=== PATIENT | male | born 1980 | race Two or more races ===

== ENCOUNTER 2024-06-25 16:05 | Emergency (ER) | payer MEDICAID, SELFPAY ==
[2024-06-25 16:36] VITALS: BP 148/84; PULSE 101; RESP 18; TEMP 38; O2SAT 98
--- NOTE | 2024-06-25 16:50 | EDNOTE_ITS ---
ED General RME/HPI General Chief complaint: Abdominal Pain Stated complaint: ABDOMINAL PAIN, DIARRHEA X 2D Time Seen by Provider: 06/25/24 16:18 Arrival date/time: 06/25/24 16:05 RME / HPI RME / HPI narrative: 44-year-old male patient came in for evaluation regarding diarrhea. Patient has been having diarrhea since yesterday nonbloody at least 8 times since the onset. Associated with abdominal cramping patient denies any fever denies any vomiting denies any nausea denies any ill contacts. Denies any travel outside the [place]. Related Data Previous Rx's ?Medication ?Instructions ?Recorded omeprazole 20 mg tablet,delayed 20 mg PO QDAY #30 tabs 04/18/23 release dicyclomine 20 mg tablet 20 mg PO BID PRN abdominal p ain 06/25/24 #20 tabs pantoprazole 40 mg tablet,delayed 40 mg PO QDAY #30 ta bs 06/25/24 release (Protonix) Allergies Allergy/AdvReac Type Severity Reaction Status Date / Time No Known Allergies Allergy Verified 06/25/24 16:08 Review of Systems Review of Systems Narrative Review of Systems: Review of system reviewed and within normal limits except mentioned in HPI ED Exam Narrative Physical exam: VITAL SIGNS: Reviewed. GENERAL APPEARANCE: Alert and interactive, follows commands, no acute distress, HEAD AND FACE: Non-traumatic. ENT: PERRL, pink conjunctivitis, eyelid no trauma, Mucous membrane moist. NECK: Supple, nontender, no nuchal rigidity. CHEST: No tenderness, no crepitus, no paradoxical movement, no retractions. LUNGS: Clear, well ventilated, symmetric, no rales, no wheezing, no ronchi, no stridor, good breath sounds bilaterally. HEART: Regular rate, regular rhythm, no murmur, no gallops. ABDOMEN: Soft, positive bowel sounds, nondistended, no guarding, nontender, no rebound, no masses, RECTAL: Deferred. GENITAL: Deferred. NEUROLOGICAL: Gross motor function intact sensory function intact, Appropriate for age. MUSCULOSKELETAL: low back nontender, full range of motion. EXTREMITIES: Nontender, full range of motion. SKIN: Color pink, dry, no rash, no lacerations, no abrasions, no contusions. LYMPHATICS: Deferred. Course Quality Measures none Orders Category Date Time Status Dicyclomine [Bentyl] Med 06/25/24 16:50 Once 20 mg PO X1 ONE Pantoprazole [Protonix] Med 06/25/24 16:50 Once 40 mg PO X1 ONE Vital Signs Vital signs: Vital Signs Temperature 100.4 F 06/25/24 16:36 Pulse Rate 101 H 06/25/24 16:36 Respiratory Rate 18 06/25/24 16:36 Blood Pressure 148/84 H 06/25/24 16:36 Pulse Oximetry (%) 98 06/25/24 16:36 Oxygen Delivery Method Room Air 06/25/24 16:36 MDM Patient data External records reviewed:: None Clinical information provided by:: patient Social determinants that could affect healthcare access:: none Patient has the following chronic illnesses:: None How is presenting disease/condition affected by chronic disease/condition?: no chronic disease Evaluation data The following diagnostics were reviewed and interpreted by me:: other (specify) (None) Lab and/or radiology exams considered but not ordered:: None Interpretation Summary: None Medications Medications considered but not ordered:: None Medication administrations:: None Consultations Consultation(s) initiated? (list below): No Diagnosis Differential Diagnosis ED Complaint MDM: Gastroenteritis, food poisoning, viral diarrhea Most likely diagnosis given after review of the tests above:: Gastroenteritis Admission Indicated Admission indicated?: not indicated Explain why admission is indicated or not indicated:: None Admission Request Was there a request for admission?: No Disposition Plan Disposition Plan: Discharge Discharge Attestation Discharge Attestation: The patient and all family members were given an opportunity to ask questions and understood the discharge instructions. Discharge instructions specifically effects, indications for sooner follow up or return to the emergency department, and the expected course of current diagnosis. Patient condition: Stable Medical Decision Making MDM Narrative MDM Narrative: 44-year-old male patient came in for evaluation regarding diarrhea. Patient has been having diarrhea since yesterday nonbloody at least 8 times since the onset. Associated with abdominal cramping patient denies any fever denies any vomiting denies any nausea denies any ill contacts. Denies any travel outside the [place]. Imaging or workup not at this time, patient's vital signs unremarkable. I did not elicit any abdominal tenderness even to deep palpation all 4 quadrants of the abdomen. Patient is stable for discharge home Differential Diagnosis Differential Diagnosis: Gastroenteritis, food poisoning, viral diarrhea Discharge Plan Plan Patient Disposition: HOME (Self Care) Disposition Comment: Stable Prescriptions/Referrals Prescriptions/Med Rec: New pantoprazole [Protonix] 40 mg tablet,delayed release (DR/EC) 40 mg PO QDAY Qty: 30 0RF dicyclomine 20 mg tablet 20 mg PO BID PRN (Reason: abdominal pain) Qty: 20 0RF No Action omeprazole 20 mg tablet,delayed release (DR/EC) 20 mg PO QDAY Qty: 30 0RF Problem List Clinical Impression: Gastroenteritis Impression comment: Thank you for the opportunity for serving you today. You are stable for discharged . You are advised to: Follow-up with your PCP in 1 to 2 days Return to ED for worsening of symptoms, fever, vomiting, worsening abdominal pain Increase oral fluids Take medication as prescribed Patient/Caregiver Discharge Instructions Discharge Activity: activity as tolerated Print Language: Liberian Stand Alone Forms: [facility] Award Info., Patient Portal Info Letter
[2024-06-25] MEDS: PANTOPRAZOLE 40 MG TABLET PO (17:23)
[2024-06-25] MEDS: DICYCLOMINE 10 MG CAPSULE 20 MG PO (17:23)
== END 2024-06-25 17:26 | disposition home or self-care (01) ==
LOC: SERX 17:16
PROVIDERS: Emergency Provider Emergency Medicine
DX: K52.9 Noninfective gastroenteritis and colitis, unspecified (principal)
CPT/HCPCS: 99282; A9270